=== PATIENT | male | born 1980 | race Caucasian/White ===

== ENCOUNTER 2017-07-20 08:09 | Emergency (ER) | payer BC ==
[2017-07-20 08:23] VITALS: BP 111/67; PULSE 68; BMI 25.0
--- NOTE | 2017-07-20 08:34 | PDOC ---
History of Present Illness - General Chief Complaint: Eye Problem Stated Complaint: EYE PROBLEM Time Seen by Provider: 07/20/17 08:31 History Source: Patient Exam Limitations: No Limitations - History of Present Illness Initial Comments: 07/20/17 09:07 07/20/17 09:26 My Chief Complaint: LEFT EYE PAIN, SEEING LIGHT IN LEFT EYE WHEN IT IS CLOSED HISTORY OF PRESENT ILLNESS: He is a 37-year-old male with a history of congenital cataracts bilaterally patient also had bilateral cataract surgery left eye 1 year ago. He shouldn't reports having a slight discomfort in the left eye on 1018 at worsened and was more severe last night causing him to have a headache above his left eye. Patient denies headache now. Patient also reports having slight nausea last night none now. Pt. reports seeing a half rolon light this morning in his upper left eye when moving his eye especially towards the left. Patient reports the vision is slightly more cloudy than usual. She called his recovery unit operator Dr. benavides who told him to come to the emergency room. Patient denies any tearing or any discharge from his left eye. Patient denies any double vision. 07/20/17 09:28 07/20/17 09:51 Timing/Duration: getting worse Severity: mild Associated Symptoms: reports: other (left eye discomfort/sensation of swelling of eye) Past History - Past Medical History Allergies/Adverse Reactions: Allergies Allergy/AdvReac Type Severity Reaction Status Date / Time atropine Allergy Mild Rash Verified 07/20/17 08:15 Penicillins Allergy Mild Rash Verified 07/20/17 08:15 Home Medications: Ambulatory Orders NK [No Known Home Medication] 07/20/17 Other medical history: Glaucoma, b/l cataract surgery - Surgical History Lung Surgery: Yes (rt pneumothorax) Other Surgical History: 07/20/17 09:14 b/l cataract surgery - Suicide/Smoking/Psychosocial Hx Smoking History: Never smoked Information on smoking cessation initiated: No Hx Alcohol Use: Yes (socially) Drug/Substance Use Hx: No Substance Use Type: None Review of Systems - Review of Systems Able to Perform ROS?: Yes Constitutional: No: Symptoms Reported HEENTM: Yes: Eye Pain (left eye stsarted on 07/10/17 worse last night ), Recent change in vision (increased cloudiness left eye ), Other (sees half rolon left upper eye this morning, with no discharge or tearing ). No: Blurred Vision, Tearing, Double Vision Respiratory: No: Symptoms reported Cardiac (ROS): No: Symptoms Reported ABD/GI: No: Symptoms Reported Musculoskeletal: No: Symptoms Reported Integumentary: No: Symptoms Reported Neurological: Yes: Headache (last night over left eye ) *Physical Exam - Vital Signs Last Vital Signs Temp Pulse Resp BP Pulse Ox 68 20 111/67 100 07/20/17 08:15 07/20/17 08:15 07/20/17 08:15 07/20/17 08:15 - Physical Exam General Appearance: Yes: Appropriately Dressed HEENT: positive: EOMI, Other (+ red reflex noted, limited exam (no dilation) left eye , conjunctiva non erythematous, edema, no hordelum noted). negative: ALPA (pupils constricted b/l ), Photophobia Integumentary: positive: Normal Color Neurologic: positive: Fully Oriented, Alert, Normal Response, Responsive Medical Decision Making - Medical Decision Making 07/20/17 09:38 He is a 37-year-old male with a history of congenital cataracts bilaterally patient also had bilateral cataract surgery left eye 1 year ago. He shouldn't reports having a slight discomfort in the left eye on 1018 at worsened and was more severe last night causing him to have a headache above his left eye. Patient denies headache now. Patient also reports having slight nausea last night none now. Pt. reports seeing a half rolon light this morning in his upper left eye when moving his eye especially towards the left. Patient reports the vision is slightly more cloudy than usual. She called his recovery unit operator Dr. benavides who told him to come to the emergency room. Patient denies any tearing or any discharge from his left eye. Patient denies any double vision. 07/20/17 09:51 left eye pain PLAN: With patient's recovery unit operator Dr. Christianson [phone] he suggested the patient go to see Dr. Su called placed to Dr. Su [phone] pt. to go there immediately for further evaluation pt. is in agreement to go to Dr Su's office for further evaluation *DC/Admit/Observation/Transfer Diagnosis at time of Disposition: Left eye pain - Discharge Dispostion Disposition: HOME Condition at time of disposition: Stable - Referrals Referrals: Jose Lopez [Staff Physician] - - Patient Instructions Additional Instructions: Go Immediately to Dr. Lopez's office at [address] [place] [address]. in [place] which is down the street from [facility] The doctor is expecting you to arrive as soon as possible Avoid rubbing or touching your left eye Patient voiced understanding of discharge instructions and all questions were answered
== END 2017-07-20 09:32 | disposition home or self-care (01) ==
LOC: JERFT 08:09
DX: H57.12 Ocular pain, left eye (principal); Z86.69 Personal history of other diseases of the nervous system and sense organs
CPT/HCPCS: 99281-25

== ENCOUNTER 2022-11-15 04:26 | Day surgery (SDC) | payer BC ==
[2022-11-13 15:36] VITALS: BMI 25.7
[2022-11-15 13:25] VITALS: TEMP 97
[2022-11-15 13:38] VITALS: PULSE 67; RESP 18
[2022-11-15 13:57] VITALS: BP 102/55
== END 2022-11-15 14:20 | disposition home or self-care (01) ==
LOC: JASU-ENDO 04:26
PROVIDERS: ATTEND Internal Medicine Gastroenterology
PROC: 0DBH8ZX Excision of Cecum, Via Natural or Artificial Opening Endoscopic, Diagnostic (ICD-10-PCS; principal; 2022-11-15 11:30)
DX: K64.8 Other hemorrhoids (principal); D12.0 Benign neoplasm of cecum
CPT/HCPCS: 88305-TC